=== PATIENT | male | born 1965 | race Caucasian/White ===

== ENCOUNTER 2017-07-01 05:42 | Emergency (ER) | payer BC, OTHER ==
[2017-07-01 06:05] VITALS: RESP 18; TEMP 97.3
[2017-07-01 06:48] VITALS: BP 150/99; PULSE 86; O2SAT 98
== END 2017-07-01 06:41 | disposition home or self-care (01) | DRG 641 ==
LOC: ED 05:42
DX: E16.2 Hypoglycemia, unspecified (principal); E11.9 Type 2 diabetes mellitus without complications; Z79.4 Long term (current) use of insulin
CPT/HCPCS: 82962; 99283

== ENCOUNTER 2018-02-04 11:48 | Emergency (ER) | payer OTHER ==
[2018-02-04 12:14] VITALS: RESP 16; TEMP 97.5
[2018-02-04] MEDS ORDERED: LIDOCAINE HCL 1% MPF 30 SOL ONE (13:04)
[2018-02-04] MEDS ORDERED: LIDOCAINE HCL 1% 50 MG/5 ML SOL INFIL ONE (13:12)
[2018-02-04 14:19] VITALS: BP 172/80; PULSE 66; O2SAT 99
== END 2018-02-04 13:51 | disposition home or self-care (01) | DRG 563 ==
LOC: ED 11:48
DX: S63.252A Unspecified dislocation of right middle finger, initial encounter (principal); S62.619A Displaced fracture of proximal phalanx of unspecified finger, initial encounter for closed fracture
CPT/HCPCS: 29131; 73140; 99283; J2001